=== PATIENT | female | born 1960 | race Caucasian/White ===

== ENCOUNTER → 2017-05-09 | Outpatient (CLI) | payer BC ==
[2017-05-09 11:03] LABS: ADD MAN DIFF? NO
[2017-05-09 11:15] LABS: BASOPHILS % 0.6 % (0.0-2.0); EOSINOPHILS # 0.2 10^3/ul (0.0-0.5); EOSINOPHILS % 2.4 % (0.0-7.0); HEMATOCRIT 41.2 % (37.0-47.0); HEMOGLOBIN 13.7 g/dl (12.0-16.0); LYMPHOCYTES # 2.1 10^3/ul (0.8-2.9); LYMPHOCYTES % 31.3 % (15.0-51.0); MEAN CORPUSCULAR HEMOGLOBIN 29.8 pg (29.0-33.0); MEAN CORPUSCULAR HGB CONC 33.3 g/dl (32.0-37.0); MEAN CORPUSCULAR VOLUME 89.6 fl (82.0-101.0); MEAN PLATELET VOLUME 10.3 fl (7.4-10.4); MONOCYTE # 0.5 10^3/ul (0.3-0.9); NEUTROPHIL # 3.8 10^3/ul (1.6-7.5); NEUTROPHILS % 57.5 % (39.0-77.0); PLATELET COUNT 304 10^3/UL (140-415); RED CELL DISTRIBUTION WIDTH 13.2 % (11.5-14.5)
[2017-05-09 11:15] LABS: WHITE BLOOD COUNT 6.7 10^3/ul (4.8-10.8)
[2017-05-09 11:42] LABS: ALANINE AMINOTRANSFERASE 78 IU/L (13-69); ALBUMIN 3.9 g/dl (3.3-4.9); ALBUMIN/GLOBULIN RATIO 1.11; ALKALINE PHOSPHATASE 98 IU/L (42-121); ANION GAP 13 (8-16); ASPARTATE AMINO TRANSFERASE 58 IU/L (15-46); BILIRUBIN,INDIRECT 0.3 mg/dl (0-1.1); BILIRUBIN,TOTAL 0.3 mg/dl (0.2-1.3); BLOOD UREA NITROGEN 16 mg/dl (7-20); CALCIUM 9.1 mg/dl (8.4-10.2); CARBON DIOXIDE 27 mmol/L (21-31); CHLORIDE 102 mmol/L (97-110); CREATININE 0.49 mg/dl (0.44-1.00); GLUCOSE 142 mg/dl (70-220); POTASSIUM 4.2 mmol/L (3.5-5.1); SODIUM 138 mmol/L (135-144); TOTAL PROTEIN 7.4 g/dl (6.1-8.1)
[2017-05-09 11:49] LABS: C-REACTIVE PROTEIN HIGH SENSI > 1.50 mg/dl (0.00-0.74)
[2017-05-09 12:51] LABS: ERYTHROCYTE SEDIMENTATION RATE 36 mm/Hr (0-30)
== END | disposition home or self-care (01) ==
LOC: LAB 10:29
DX: M06.9 Rheumatoid arthritis, unspecified (principal)
CPT/HCPCS: 80053; 82306; 85025; 85651; 86140

== ENCOUNTER → 2017-06-29 | Outpatient (CLI) | payer BC ==
[2017-06-29 07:21] LABS: ADD MAN DIFF? NO
[2017-06-29 07:24] LABS: BASOPHIL # 0.1 10^3/ul (0.0-0.1); BASOPHILS % 0.7 % (0.0-2.0); EOSINOPHILS # 0.2 10^3/ul (0.0-0.5); EOSINOPHILS % 2.2 % (0.0-7.0); HEMATOCRIT 38.5 % (37.0-47.0); HEMOGLOBIN 12.9 g/dl (12.0-16.0); LYMPHOCYTES # 2.3 10^3/ul (0.8-2.9); LYMPHOCYTES % 33.9 % (15.0-51.0); MEAN CORPUSCULAR HEMOGLOBIN 29.9 pg (29.0-33.0); MEAN CORPUSCULAR HGB CONC 33.5 g/dl (32.0-37.0); MEAN CORPUSCULAR VOLUME 89.3 fl (82.0-101.0); MEAN PLATELET VOLUME 10.4 fl (7.4-10.4); MONOCYTE # 0.8 10^3/ul (0.3-0.9); MONOCYTES % 11.2 % (0.0-11.0); NEUTROPHIL # 3.5 10^3/ul (1.6-7.5); NEUTROPHILS % 51.9 % (39.0-77.0); PLATELET COUNT 269 10^3/UL (140-415); RED BLOOD COUNT 4.31 10^6/ul (4.20-5.40); RED CELL DISTRIBUTION WIDTH 13.2 % (11.5-14.5)
[2017-06-29 07:24] LABS: WHITE BLOOD COUNT 6.8 10^3/ul (4.8-10.8)
[2017-06-29 08:10] LABS: ALANINE AMINOTRANSFERASE 71 IU/L (13-69); ALBUMIN 4.2 g/dl (3.3-4.9); ALBUMIN/GLOBULIN RATIO 1.23; ALKALINE PHOSPHATASE 103 IU/L (42-121); ANION GAP 14 (8-16); ASPARTATE AMINO TRANSFERASE 60 IU/L (15-46); BILIRUBIN,INDIRECT 0.3 mg/dl (0-1.1); BILIRUBIN,TOTAL 0.3 mg/dl (0.2-1.3); BLOOD UREA NITROGEN 15 mg/dl (7-20); CALCIUM 9.5 mg/dl (8.4-10.2); CARBON DIOXIDE 26 mmol/L (21-31); CHLORIDE 104 mmol/L (97-110); CHOL/HDL RATIO 4.9 RATIO; CHOLESTEROL 201 mg/dl (100-200); CREATININE 0.51 mg/dl (0.44-1.00); GLUCOSE 174 mg/dl (70-220); HDL CHOLESTEROL 41 mg/dl (37-92); LDL CHOLESTEROL,CALCULATED 112 mg/dl; POTASSIUM 4.1 mmol/L (3.5-5.1); SODIUM 140 mmol/L (135-144); TOTAL PROTEIN 7.6 g/dl (6.1-8.1); TRIGLYCERIDES 242 mg/dl (0-149)
[2017-06-29 08:18] LABS: C-REACTIVE PROTEIN HIGH SENSI > 1.50 mg/dl (0.00-0.74)
[2017-06-29 09:14] LABS: ERYTHROCYTE SEDIMENTATION RATE 42 mm/Hr (0-30)
== END | disposition home or self-care (01) ==
LOC: LAB 06:55
DX: M06.9 Rheumatoid arthritis, unspecified (principal)
CPT/HCPCS: 80053; 80061; 82306; 85025; 85651; 86140

== ENCOUNTER → 2017-10-06 | Outpatient (CLI) | payer BC ==
[2017-10-06 09:34] LABS: ADD MAN DIFF? NO
[2017-10-06 09:49] LABS: BASOPHILS % 0.4 % (0.0-2.0); EOSINOPHILS # 0.2 10^3/ul (0.0-0.5); EOSINOPHILS % 2.7 % (0.0-7.0); HEMATOCRIT 39.4 % (37.0-47.0); HEMOGLOBIN 13.2 g/dl (12.0-16.0); LYMPHOCYTES % 30.4 % (15.0-51.0); MEAN CORPUSCULAR HEMOGLOBIN 29.7 pg (29.0-33.0); MEAN CORPUSCULAR HGB CONC 33.5 g/dl (32.0-37.0); MEAN CORPUSCULAR VOLUME 88.7 fl (82.0-101.0); MEAN PLATELET VOLUME 10.1 fl (7.4-10.4); MONOCYTE # 0.5 10^3/ul (0.3-0.9); MONOCYTES % 7.2 % (0.0-11.0); NEUTROPHILS % 58.9 % (39.0-77.0); PLATELET COUNT 281 10^3/UL (140-415); RED BLOOD COUNT 4.44 10^6/ul (4.20-5.40); RED CELL DISTRIBUTION WIDTH 12.5 % (11.5-14.5)
[2017-10-06 09:49] LABS: WHITE BLOOD COUNT 6.7 10^3/ul (4.8-10.8)
[2017-10-06 10:07] LABS: ALANINE AMINOTRANSFERASE 50 IU/L (13-69); ALBUMIN/GLOBULIN RATIO 1.14; ALKALINE PHOSPHATASE 87 IU/L (42-121); ANION GAP 14 (8-16); ASPARTATE AMINO TRANSFERASE 35 IU/L (15-46); BILIRUBIN,INDIRECT 0.2 mg/dl (0-1.1); BILIRUBIN,TOTAL 0.2 mg/dl (0.2-1.3); BLOOD UREA NITROGEN 16 mg/dl (7-20); CALCIUM 9.2 mg/dl (8.4-10.2); CARBON DIOXIDE 31 mmol/L (21-31); CHLORIDE 103 mmol/L (97-110); GLUCOSE 143 mg/dl (70-220); POTASSIUM 4.3 mmol/L (3.5-5.1); SODIUM 144 mmol/L (135-144); TOTAL PROTEIN 7.5 g/dl (6.1-8.1)
[2017-10-06 10:54] LABS: ERYTHROCYTE SEDIMENTATION RATE 38 mm/Hr (0-30)
[2017-10-06 11:05] LABS: C-REACTIVE PROTEIN 1.6 mg/dl (0.0-0.9)
== END | disposition home or self-care (01) ==
LOC: LAB 09:21
DX: M06.9 Rheumatoid arthritis, unspecified (principal)
CPT/HCPCS: 80053; 85025; 85651; 86140

== ENCOUNTER → 2017-11-24 | Outpatient (CLI) | payer BC ==
[2017-11-24 10:40] LABS: ADD MAN DIFF? NO
[2017-11-24 10:55] LABS: WHITE BLOOD COUNT 6.2 10^3/ul (4.8-10.8)
[2017-11-24 10:55] LABS: BASOPHILS % 0.6 % (0.0-2.0); EOSINOPHILS # 0.2 10^3/ul (0.0-0.5); EOSINOPHILS % 2.9 % (0.0-7.0); HEMATOCRIT 39.3 % (37.0-47.0); LYMPHOCYTES # 1.8 10^3/ul (0.8-2.9); LYMPHOCYTES % 29.4 % (15.0-51.0); MEAN CORPUSCULAR HEMOGLOBIN 28.9 pg (29.0-33.0); MEAN CORPUSCULAR HGB CONC 33.1 g/dl (32.0-37.0); MEAN CORPUSCULAR VOLUME 87.3 fl (82.0-101.0); MEAN PLATELET VOLUME 10.6 fl (7.4-10.4); MONOCYTE # 0.6 10^3/ul (0.3-0.9); NEUTROPHIL # 3.6 10^3/ul (1.6-7.5); NEUTROPHILS % 57.9 % (39.0-77.0); PLATELET COUNT 269 10^3/UL (140-415); RED CELL DISTRIBUTION WIDTH 12.5 % (11.5-14.5)
[2017-11-24 11:08] LABS: ALANINE AMINOTRANSFERASE 49 IU/L (13-69); ALBUMIN/GLOBULIN RATIO 1.08; ALKALINE PHOSPHATASE 91 IU/L (42-121); ANION GAP 12 (8-16); ASPARTATE AMINO TRANSFERASE 31 IU/L (15-46); BILIRUBIN,INDIRECT 0.5 mg/dl (0-1.1); BILIRUBIN,TOTAL 0.5 mg/dl (0.2-1.3); BLOOD UREA NITROGEN 15 mg/dl (7-20); CALCIUM 8.9 mg/dl (8.4-10.2); CARBON DIOXIDE 27 mmol/L (21-31); CHLORIDE 108 mmol/L (97-110); CREATININE 0.44 mg/dl (0.44-1.00); GLUCOSE 151 mg/dl (70-220); POTASSIUM 4.3 mmol/L (3.5-5.1); SODIUM 143 mmol/L (135-144); TOTAL PROTEIN 7.7 g/dl (6.1-8.1)
[2017-11-24 12:11] LABS: ERYTHROCYTE SEDIMENTATION RATE 35 mm/Hr (0-30)
[2017-11-24 21:55] LABS: RHEUMATOID FACTOR POSITIVE (NEGATIVE)
== END | disposition home or self-care (01) ==
LOC: LAB 10:25
DX: E55.9 Vitamin D deficiency, unspecified (principal); M06.9 Rheumatoid arthritis, unspecified
CPT/HCPCS: 80053; 82306; 85025; 85651; 86140; 86430

== ENCOUNTER → 2018-01-27 | Outpatient (CLI) | payer BC | END | disposition home or self-care (01) | LOC: RAD 11:46 | DX: R05 Cough (principal) | CPT/HCPCS: 71046 ==

== ENCOUNTER → 2018-02-17 | Outpatient (CLI) | payer BC ==
[2018-02-17 06:57] LABS: ADD MAN DIFF? NO
[2018-02-17 07:12] LABS: BASOPHIL # 0.1 10^3/ul (0.0-0.1); BASOPHILS % 0.8 % (0.0-2.0); EOSINOPHILS # 0.3 10^3/ul (0.0-0.5); EOSINOPHILS % 3.8 % (0.0-7.0); HEMOGLOBIN 12.8 g/dl (12.0-16.0); LYMPHOCYTES # 2.1 10^3/ul (0.8-2.9); LYMPHOCYTES % 32.3 % (15.0-51.0); MEAN CORPUSCULAR HEMOGLOBIN 28.1 pg (29.0-33.0); MEAN CORPUSCULAR VOLUME 87.9 fl (82.0-101.0); MEAN PLATELET VOLUME 10.6 fl (7.4-10.4); MONOCYTE # 0.7 10^3/ul (0.3-0.9); MONOCYTES % 10.4 % (0.0-11.0); NEUTROPHIL # 3.4 10^3/ul (1.6-7.5); NEUTROPHILS % 52.5 % (39.0-77.0); PLATELET COUNT 293 10^3/UL (140-415); RED BLOOD COUNT 4.55 10^6/ul (4.20-5.40); RED CELL DISTRIBUTION WIDTH 13.2 % (11.5-14.5)
[2018-02-17 07:12] LABS: WHITE BLOOD COUNT 6.5 10^3/ul (4.8-10.8)
[2018-02-17 07:51] LABS: ALANINE AMINOTRANSFERASE 44 IU/L (13-69); ALBUMIN 4.1 g/dl (3.3-4.9); ALBUMIN/GLOBULIN RATIO 1.17; ALKALINE PHOSPHATASE 79 IU/L (42-121); ANION GAP 12 (8-16); ASPARTATE AMINO TRANSFERASE 45 IU/L (15-46); BILIRUBIN,INDIRECT 0.9 mg/dl (0-1.1); BILIRUBIN,TOTAL 0.9 mg/dl (0.2-1.3); BLOOD UREA NITROGEN 22 mg/dl (7-20); CALCIUM 9.3 mg/dl (8.4-10.2); CARBON DIOXIDE 28 mmol/L (21-31); CHLORIDE 105 mmol/L (97-110); CREATININE 0.53 mg/dl (0.44-1.00); GLUCOSE 167 mg/dl (70-220); POTASSIUM 4.2 mmol/L (3.5-5.1); SODIUM 141 mmol/L (135-144); TOTAL PROTEIN 7.6 g/dl (6.1-8.1)
[2018-02-17 07:55] LABS: C-REACTIVE PROTEIN HIGH SENSI > 1.50 mg/dl (0.00-0.74)
== END | disposition home or self-care (01) ==
LOC: LAB 06:38
DX: M06.9 Rheumatoid arthritis, unspecified (principal)
CPT/HCPCS: 80053; 82306; 85025; 85651; 86140

== ENCOUNTER → 2018-03-10 | Outpatient (CLI) | payer BC ==
[2018-03-10 07:25] LABS: ADD MAN DIFF? NO
[2018-03-10 07:32] LABS: WHITE BLOOD COUNT 5.9 10^3/ul (4.8-10.8)
[2018-03-10 07:32] LABS: BASOPHILS % 0.5 % (0.0-2.0); EOSINOPHILS # 0.2 10^3/ul (0.0-0.5); EOSINOPHILS % 3.2 % (0.0-7.0); HEMATOCRIT 39.1 % (37.0-47.0); HEMOGLOBIN 12.9 g/dl (12.0-16.0); LYMPHOCYTES # 2.2 10^3/ul (0.8-2.9); LYMPHOCYTES % 36.9 % (15.0-51.0); MEAN CORPUSCULAR VOLUME 87.9 fl (82.0-101.0); MEAN PLATELET VOLUME 10.8 fl (7.4-10.4); MONOCYTE # 0.6 10^3/ul (0.3-0.9); MONOCYTES % 10.2 % (0.0-11.0); NEUTROPHIL # 2.9 10^3/ul (1.6-7.5); PLATELET COUNT 264 10^3/UL (140-415); RED BLOOD COUNT 4.45 10^6/ul (4.20-5.40)
[2018-03-10 07:55] LABS: ALANINE AMINOTRANSFERASE 42 IU/L (13-69); ALBUMIN 3.9 g/dl (3.3-4.9); ALBUMIN/GLOBULIN RATIO 1.05; ALKALINE PHOSPHATASE 75 IU/L (42-121); ANION GAP 7 (5-13); ASPARTATE AMINO TRANSFERASE 34 IU/L (15-46); BILIRUBIN,INDIRECT 0.6 mg/dl (0-1.1); BILIRUBIN,TOTAL 0.6 mg/dl (0.2-1.3); BLOOD UREA NITROGEN 17 mg/dl (7-20); CALCIUM 9.1 mg/dl (8.4-10.2); CARBON DIOXIDE 28 mmol/L (21-31); CHLORIDE 105 mmol/L (97-110); CHOL/HDL RATIO 5.2 RATIO; CHOLESTEROL 215 mg/dl (100-200); CREATININE 0.43 mg/dl (0.44-1.00); GLUCOSE 179 mg/dl (70-220); HDL CHOLESTEROL 41 mg/dl (37-92); LDL CHOLESTEROL,CALCULATED 131 mg/dl; POTASSIUM 4.3 mmol/L (3.5-5.1); SODIUM 140 mmol/L (135-144); TOTAL PROTEIN 7.6 g/dl (6.1-8.1); TRIGLYCERIDES 213 mg/dl (0-149)
== END | disposition home or self-care (01) ==
LOC: LAB 06:54
DX: M06.9 Rheumatoid arthritis, unspecified (principal)
CPT/HCPCS: 80053; 80061; 85025; 86480

== ENCOUNTER → 2018-07-14 | Outpatient (CLI) | payer BC ==
[2018-07-14 10:39] LABS: ADD MAN DIFF? NO
[2018-07-14 10:51] LABS: WHITE BLOOD COUNT 6.1 10^3/ul (4.8-10.8)
[2018-07-14 10:51] LABS: BASOPHILS % 0.5 % (0.0-2.0); EOSINOPHILS # 0.2 10^3/ul (0.0-0.5); EOSINOPHILS % 3.1 % (0.0-7.0); HEMATOCRIT 40.7 % (37.0-47.0); HEMOGLOBIN 13.6 g/dl (12.0-16.0); LYMPHOCYTES # 2.1 10^3/ul (0.8-2.9); MEAN CORPUSCULAR HGB CONC 33.4 g/dl (32.0-37.0); MEAN CORPUSCULAR VOLUME 86.8 fl (82.0-101.0); MEAN PLATELET VOLUME 11.1 fl (7.4-10.4); MONOCYTE # 0.5 10^3/ul (0.3-0.9); MONOCYTES % 8.9 % (0.0-11.0); NEUTROPHIL # 3.2 10^3/ul (1.6-7.5); NEUTROPHILS % 52.2 % (39.0-77.0); PLATELET COUNT 248 10^3/UL (140-415); RED BLOOD COUNT 4.69 10^6/ul (4.20-5.40); RED CELL DISTRIBUTION WIDTH 12.2 % (11.5-14.5)
[2018-07-14 11:04] LABS: C-REACTIVE PROTEIN HIGH SENSI 1.32 mg/dl (0.00-0.74)
[2018-07-14 11:42] LABS: ERYTHROCYTE SEDIMENTATION RATE 28 mm/Hr (0-30)
== END | disposition home or self-care (01) ==
LOC: LAB 10:11
DX: M06.9 Rheumatoid arthritis, unspecified (principal); E55.9 Vitamin D deficiency, unspecified
CPT/HCPCS: 82306; 85025; 85651; 86140

== ENCOUNTER → 2018-08-15 | Outpatient (CLI) | payer BC ==
[2018-08-15 12:02] LABS: ADD MAN DIFF? NO
[2018-08-15 12:12] LABS: ADD UMIC YES; UR ASCORBIC ACID NEGATIVE (NEGATIVE); UR BILIRUBIN (Dip) NEGATIVE (NEGATIVE); UR BLOOD (Dip) NEGATIVE (NEGATIVE); UR CLARITY CLEAR (CLEAR); UR COLOR YELLOW (YELLOW); UR GLUCOSE (Dip) 3+ mg/dL (NEGATIVE); UR KETONES (Dip) 1+ mg/dL (NEGATIVE); UR LEUKOCYTE ESTERASE (Dip) NEGATIVE Leu/ul (NEGATIVE); UR NITRITE (Dip) NEGATIVE (NEGATIVE); UR RBC 4 /HPF (0-5); UR SPECIFIC GRAVITY (Dip) 1.039 (1.003-1.030); UR SQUAMOUS EPITHELIAL CELL FEW /HPF (FEW); UR TOTAL PROTEIN (Dip) 2+ mg/dl (NEGATIVE); UR UROBILINOGEN (Dip) NEGATIVE (NEGATIVE); UR WBC 3 /HPF (0-5)
[2018-08-15 12:22] LABS: HEMOGLOBIN A1C 12.6 % (0-5.9)
[2018-08-15 12:24] LABS: ALANINE AMINOTRANSFERASE 50 IU/L (13-69); ALBUMIN 4.1 g/dl (3.3-4.9); ALBUMIN/GLOBULIN RATIO 1.13; ALKALINE PHOSPHATASE 113 IU/L (42-121); ANION GAP 9 (5-13); ASPARTATE AMINO TRANSFERASE 37 IU/L (15-46); BASOPHILS % 0.6 % (0.0-2.0); BILIRUBIN,INDIRECT 0.6 mg/dl (0-1.1); BILIRUBIN,TOTAL 0.6 mg/dl (0.2-1.3); BLOOD UREA NITROGEN 13 mg/dl (7-20); CALCIUM 9.4 mg/dl (8.4-10.2); CARBON DIOXIDE 27 mmol/L (21-31); CHLORIDE 101 mmol/L (97-110); CHOL/HDL RATIO 6.7 RATIO; CHOLESTEROL 237 mg/dl (100-200); CREATININE 0.36 mg/dl (0.44-1.00); EOSINOPHILS # 0.2 10^3/ul (0.0-0.5); EOSINOPHILS % 2.5 % (0.0-7.0); Estimated GFR > 60 mL/min (>60); GLUCOSE 349 mg/dl (70-220); HDL CHOLESTEROL 35 mg/dl (37-92); HEMATOCRIT 41.2 % (37.0-47.0); HEMOGLOBIN 13.7 g/dl (12.0-16.0); LDL CHOLESTEROL,CALCULATED 152 mg/dl; LYMPHOCYTES # 2.4 10^3/ul (0.8-2.9); LYMPHOCYTES % 35.7 % (15.0-51.0); MEAN CORPUSCULAR HEMOGLOBIN 28.9 pg (29.0-33.0); MEAN CORPUSCULAR HGB CONC 33.3 g/dl (32.0-37.0); MEAN CORPUSCULAR VOLUME 86.9 fl (82.0-101.0); MEAN PLATELET VOLUME 11.6 fl (7.4-10.4); MONOCYTE # 0.6 10^3/ul (0.3-0.9); MONOCYTES % 9.1 % (0.0-11.0); NEUTROPHIL # 3.5 10^3/ul (1.6-7.5); PLATELET COUNT 262 10^3/UL (140-415); POTASSIUM 4.1 mmol/L (3.5-5.1); RED BLOOD COUNT 4.74 10^6/ul (4.20-5.40); RED CELL DISTRIBUTION WIDTH 12.5 % (11.5-14.5); SODIUM 137 mmol/L (135-144); TOTAL PROTEIN 7.7 g/dl (6.1-8.1); TRIGLYCERIDES 248 mg/dl (0-149)
[2018-08-15 12:24] LABS: WHITE BLOOD COUNT 6.7 10^3/ul (4.8-10.8)
[2018-08-16 17:17] LABS: CREATININE, RANDOM URINE 72 mg/dL (20-275); MICROALBUMIN 53.8 mg/dL; MICROALBUMIN/CREATININE RATIO 747 (<30)
== END | disposition home or self-care (01) ==
LOC: LAB 11:04
DX: E11.8 Type 2 diabetes mellitus with unspecified complications (principal); E78.5 Hyperlipidemia, unspecified
CPT/HCPCS: 80053; 80061; 81001; 82043; 83036; 84443; 85025

== ENCOUNTER → 2018-10-11 | Outpatient (CLI) | payer BC ==
[2018-10-11 11:17] LABS: ADD MAN DIFF? NO
[2018-10-11 11:22] LABS: BASOPHILS % 0.4 % (0.0-2.0); EOSINOPHILS # 0.2 10^3/ul (0.0-0.5); EOSINOPHILS % 3.2 % (0.0-7.0); HEMATOCRIT 42.1 % (37.0-47.0); HEMOGLOBIN 14.1 g/dl (12.0-16.0); LYMPHOCYTES % 34.6 % (15.0-51.0); MEAN CORPUSCULAR HEMOGLOBIN 28.7 pg (29.0-33.0); MEAN CORPUSCULAR HGB CONC 33.5 g/dl (32.0-37.0); MEAN CORPUSCULAR VOLUME 85.6 fl (82.0-101.0); MEAN PLATELET VOLUME 10.6 fl (7.4-10.4); MONOCYTE # 0.4 10^3/ul (0.3-0.9); MONOCYTES % 7.6 % (0.0-11.0); NEUTROPHILS % 53.8 % (39.0-77.0); PLATELET COUNT 282 10^3/UL (140-415); RED BLOOD COUNT 4.92 10^6/ul (4.20-5.40); RED CELL DISTRIBUTION WIDTH 12.1 % (11.5-14.5)
[2018-10-11 11:22] LABS: WHITE BLOOD COUNT 5.6 10^3/ul (4.8-10.8)
[2018-10-11 11:30] LABS: HEMOGLOBIN A1C 13.2 % (0-5.9)
[2018-10-11 11:45] LABS: ALANINE AMINOTRANSFERASE 34 IU/L (13-69); ALBUMIN 4.1 g/dl (3.3-4.9); ALBUMIN/GLOBULIN RATIO 1.24; ALKALINE PHOSPHATASE 101 IU/L (42-121); AMYLASE 72 U/L (11-123); ANION GAP 8 (5-13); ASPARTATE AMINO TRANSFERASE 33 IU/L (15-46); BILIRUBIN,INDIRECT 0.7 mg/dl (0-1.1); BILIRUBIN,TOTAL 0.7 mg/dl (0.2-1.3); BLOOD UREA NITROGEN 14 mg/dl (7-20); CALCIUM 9.2 mg/dl (8.4-10.2); CARBON DIOXIDE 28 mmol/L (21-31); CHLORIDE 100 mmol/L (97-110); CHOL/HDL RATIO 6.2 RATIO; CHOLESTEROL 226 mg/dl (100-200); CREATININE 0.41 mg/dl (0.44-1.00); Estimated GFR > 60 mL/min (>60); GLUCOSE 327 mg/dl (70-220); HDL CHOLESTEROL 36 mg/dl (37-92); LDL CHOLESTEROL,CALCULATED 143 mg/dl; LIPASE 111 U/L (23-300); MAGNESIUM 1.5 mg/dl (1.7-2.5); POTASSIUM 3.9 mmol/L (3.5-5.1); SODIUM 136 mmol/L (135-144); TOTAL PROTEIN 7.4 g/dl (6.1-8.1); TRIGLYCERIDES 237 mg/dl (0-149)
[2018-10-11 12:01] LABS: FREE T4 (FREE THYROXINE) 1.29 ng/dl (0.64-1.79)
[2018-10-11 12:58] LABS: ADD UMIC YES; UR AMORPHOUS CRYSTAL MANY /HPF (NONE SEEN); UR ASCORBIC ACID NEGATIVE (NEGATIVE); UR BACTERIA MODERATE /HPF (NONE SEEN); UR BILIRUBIN (Dip) NEGATIVE (NEGATIVE); UR BLOOD (Dip) 1+ mg/dL (NEGATIVE); UR CLARITY TURBID (CLEAR); UR COLOR YELLOW (YELLOW); UR GLUCOSE (Dip) 3+ mg/dL (NEGATIVE); UR KETONES (Dip) TRACE mg/dL (NEGATIVE); UR LEUKOCYTE ESTERASE (Dip) NEGATIVE Leu/ul (NEGATIVE); UR MUCUS MODERATE /HPF (NONE SEEN); UR NITRITE (Dip) NEGATIVE (NEGATIVE); UR RBC 1 /HPF (0-5); UR SQUAMOUS EPITHELIAL CELL FEW /HPF (FEW); UR TOTAL PROTEIN (Dip) 2+ mg/dl (NEGATIVE); UR UROBILINOGEN (Dip) 1+ mg/dL (NEGATIVE); UR WBC 3 /HPF (0-5)
[2018-10-12 15:22] LABS: CREATININE, RANDOM URINE 167 mg/dL (20-275); MICROALBUMIN 67.2 mg/dL; MICROALBUMIN/CREATININE RATIO 402 (<30)
== END | disposition home or self-care (01) ==
LOC: LAB 10:01
DX: I10 Essential (primary) hypertension (principal); E11.9 Type 2 diabetes mellitus without complications
CPT/HCPCS: 80053; 80061; 81001; 82043; 82150; 82306; 82607; 83036; 83690; 83735; 84439; 84443; 85025; 93005

== ENCOUNTER → 2018-10-30 | Outpatient (CLI) | payer BC ==
[2018-10-30 12:03] LABS: ADD MAN DIFF? NO
[2018-10-30 12:07] LABS: BASOPHILS % 0.7 % (0.0-2.0); EOSINOPHILS # 0.4 10^3/ul (0.0-0.5); HEMOGLOBIN 13.2 g/dl (12.0-16.0); LYMPHOCYTES # 2.3 10^3/ul (0.8-2.9); LYMPHOCYTES % 37.9 % (15.0-51.0); MEAN CORPUSCULAR HEMOGLOBIN 28.3 pg (29.0-33.0); MEAN CORPUSCULAR VOLUME 85.8 fl (82.0-101.0); MEAN PLATELET VOLUME 10.3 fl (7.4-10.4); MONOCYTE # 0.7 10^3/ul (0.3-0.9); MONOCYTES % 10.8 % (0.0-11.0); NEUTROPHIL # 2.7 10^3/ul (1.6-7.5); NEUTROPHILS % 44.3 % (39.0-77.0); PLATELET COUNT 296 10^3/UL (140-415); RED BLOOD COUNT 4.66 10^6/ul (4.20-5.40)
[2018-10-30 12:30] LABS: ALANINE AMINOTRANSFERASE 40 IU/L (13-69); ALBUMIN/GLOBULIN RATIO 1.02; ALKALINE PHOSPHATASE 107 IU/L (42-121); ANION GAP 10 (5-13); ASPARTATE AMINO TRANSFERASE 32 IU/L (15-46); BILIRUBIN,INDIRECT 0.6 mg/dl (0-1.1); BILIRUBIN,TOTAL 0.6 mg/dl (0.2-1.3); BLOOD UREA NITROGEN 16 mg/dl (7-20); C-REACTIVE PROTEIN 2.9 mg/dl (0.0-0.9); CALCIUM 9.5 mg/dl (8.4-10.2); CARBON DIOXIDE 25 mmol/L (21-31); CHLORIDE 101 mmol/L (97-110); Estimated GFR > 60 mL/min (>60); POTASSIUM 4.3 mmol/L (3.5-5.1); SODIUM 136 mmol/L (135-144); TOTAL PROTEIN 7.9 g/dl (6.1-8.1)
[2018-10-30 14:26] LABS: GLUCOSE 531 mg/dl (70-220)
== END | disposition home or self-care (01) ==
LOC: LAB 10:34
DX: I10 Essential (primary) hypertension (principal); E11.9 Type 2 diabetes mellitus without complications; E78.00 Pure hypercholesterolemia, unspecified; M06.9 Rheumatoid arthritis, unspecified; E55.9 Vitamin D deficiency, unspecified
CPT/HCPCS: 80053; 82306; 85025; 85651; 86140

== ENCOUNTER 2019-01-09 07:30 | Emergency (ER) | payer BC ==
[2019-01-09] MEDS: ONDANSETRON 4 MG INJ IV (08:07)
[2019-01-09] MEDS: DIPHENHYDRAMINE 50 MG INJ IV (08:07)
[2019-01-09] MEDS: KETOROLAC 30 MG INJ IV (08:07)
[2019-01-09] MEDS: SOD CHLORIDE 0.9% 1,000 ML IV (08:07)
[2019-01-09 08:10] LABS: ADD MAN DIFF? NO
[2019-01-09 08:11] LABS: WHITE BLOOD COUNT 7.6 10^3/ul (4.8-10.8)
[2019-01-09 08:11] LABS: BASOPHILS % 0.4 % (0.0-2.0); EOSINOPHILS % 0.4 % (0.0-7.0); HEMATOCRIT 41.9 % (37.0-47.0); HEMOGLOBIN 13.5 g/dl (12.0-16.0); LYMPHOCYTES # 1.3 10^3/ul (0.8-2.9); LYMPHOCYTES % 16.7 % (15.0-51.0); MEAN CORPUSCULAR HEMOGLOBIN 29.3 pg (29.0-33.0); MEAN CORPUSCULAR HGB CONC 32.2 g/dl (32.0-37.0); MEAN CORPUSCULAR VOLUME 90.9 fl (82.0-101.0); MEAN PLATELET VOLUME 9.9 fl (7.4-10.4); MONOCYTE # 0.3 10^3/ul (0.3-0.9); MONOCYTES % 3.3 % (0.0-11.0); NEUTROPHILS % 78.9 % (39.0-77.0); PLATELET COUNT 352 10^3/UL (140-415); RED BLOOD COUNT 4.61 10^6/ul (4.20-5.40); RED CELL DISTRIBUTION WIDTH 13.3 % (11.5-14.5)
[2019-01-09 08:17] LABS: ADD UMIC YES; UR ASCORBIC ACID NEGATIVE (NEGATIVE); UR BACTERIA FEW /HPF (NONE SEEN); UR BILIRUBIN (Dip) NEGATIVE (NEGATIVE); UR BLOOD (Dip) 1+ mg/dL (NEGATIVE); UR CLARITY CLEAR (CLEAR); UR COLOR YELLOW (YELLOW); UR GLUCOSE (Dip) NEGATIVE (NEGATIVE); UR KETONES (Dip) NEGATIVE (NEGATIVE); UR LEUKOCYTE ESTERASE (Dip) NEGATIVE Leu/ul (NEGATIVE); UR NITRITE (Dip) NEGATIVE (NEGATIVE); UR RBC 1 /HPF (0-5); UR SPECIFIC GRAVITY (Dip) 1.012 (1.003-1.030); UR TOTAL PROTEIN (Dip) 1+ mg/dl (NEGATIVE); UR UROBILINOGEN (Dip) NEGATIVE (NEGATIVE); UR WBC 0 /HPF (0-5)
[2019-01-09 08:31] LABS: INR 0.89; PROTIME 12.2 Sec (11.9-14.9)
[2019-01-09 08:32] LABS: PARTIAL THROMBOPLASTIN TIME 32.3 Sec (23.0-35.0)
[2019-01-09 08:35] LABS: ALANINE AMINOTRANSFERASE 30 IU/L (13-69); ALBUMIN 4.4 g/dl (3.3-4.9); ALKALINE PHOSPHATASE 84 IU/L (42-121); ANION GAP 9 (5-13); ASPARTATE AMINO TRANSFERASE 30 IU/L (15-46); BILIRUBIN,INDIRECT 0.6 mg/dl (0-1.1); BILIRUBIN,TOTAL 0.6 mg/dl (0.2-1.3); BLOOD UREA NITROGEN 18 mg/dl (7-20); CALCIUM 9.8 mg/dl (8.4-10.2); CARBON DIOXIDE 28 mmol/L (21-31); CHLORIDE 102 mmol/L (97-110); CREATININE 0.53 mg/dl (0.44-1.00); Estimated GFR > 60 mL/min (>60); GLUCOSE 174 mg/dl (70-220); SODIUM 139 mmol/L (135-144); TOTAL PROTEIN 8.4 g/dl (6.1-8.1)
[2019-01-09] MEDS: DEXAMETHASONE 10 MG/ML 1 ML INJ IV (09:22)
== END 2019-01-09 10:01 | disposition home or self-care (01) ==
LOC: FTE 10:01
DX: R51 Headache (principal); I10 Essential (primary) hypertension; E11.9 Type 2 diabetes mellitus without complications; R11.10 Vomiting, unspecified; Z79.84 Long term (current) use of oral hypoglycemic drugs
CPT/HCPCS: 36415; 70450; 80053; 81001; 85025; 85610; 85730; 96361; 96374; 96375; 99285-25

== ENCOUNTER → 2019-01-12 | Outpatient (CLI) | payer BC ==
[2019-01-12 14:27] LABS: ADD MAN DIFF? NO
[2019-01-12 14:28] LABS: BASOPHIL # 0.1 10^3/ul (0.0-0.1); BASOPHILS % 0.7 % (0.0-2.0); EOSINOPHILS # 0.2 10^3/ul (0.0-0.5); EOSINOPHILS % 2.3 % (0.0-7.0); HEMATOCRIT 38.3 % (37.0-47.0); HEMOGLOBIN 12.5 g/dl (12.0-16.0); LYMPHOCYTES # 2.7 10^3/ul (0.8-2.9); LYMPHOCYTES % 36.5 % (15.0-51.0); MEAN CORPUSCULAR HEMOGLOBIN 29.6 pg (29.0-33.0); MEAN CORPUSCULAR HGB CONC 32.6 g/dl (32.0-37.0); MEAN CORPUSCULAR VOLUME 90.5 fl (82.0-101.0); MEAN PLATELET VOLUME 9.8 fl (7.4-10.4); MONOCYTE # 0.7 10^3/ul (0.3-0.9); MONOCYTES % 9.2 % (0.0-11.0); NEUTROPHIL # 3.8 10^3/ul (1.6-7.5); PLATELET COUNT 348 10^3/UL (140-415); RED BLOOD COUNT 4.23 10^6/ul (4.20-5.40); RED CELL DISTRIBUTION WIDTH 13.3 % (11.5-14.5)
[2019-01-12 14:28] LABS: WHITE BLOOD COUNT 7.5 10^3/ul (4.8-10.8)
[2019-01-12 14:53] LABS: ALANINE AMINOTRANSFERASE 27 IU/L (13-69); ALBUMIN/GLOBULIN RATIO 1.11; ALKALINE PHOSPHATASE 73 IU/L (42-121); ANION GAP 8 (5-13); ASPARTATE AMINO TRANSFERASE 22 IU/L (15-46); BILIRUBIN,INDIRECT 0.5 mg/dl (0-1.1); BILIRUBIN,TOTAL 0.5 mg/dl (0.2-1.3); BLOOD UREA NITROGEN 21 mg/dl (7-20); C-REACTIVE PROTEIN 1.4 mg/dl (0.0-0.9); CALCIUM 9.6 mg/dl (8.4-10.2); CARBON DIOXIDE 29 mmol/L (21-31); CHLORIDE 102 mmol/L (97-110); CREATININE 0.55 mg/dl (0.44-1.00); Estimated GFR > 60 mL/min (>60); GLUCOSE 117 mg/dl (70-220); POTASSIUM 3.8 mmol/L (3.5-5.1); SODIUM 139 mmol/L (135-144); TOTAL PROTEIN 7.6 g/dl (6.1-8.1)
[2019-01-12 15:38] LABS: ERYTHROCYTE SEDIMENTATION RATE 43 mm/Hr (0-30)
== END | disposition home or self-care (01) ==
LOC: LAB 14:02
DX: M06.9 Rheumatoid arthritis, unspecified (principal)
CPT/HCPCS: 80053; 85025; 85651; 86140